=== PATIENT | female | born 1960 | race Caucasian/White ===

== ENCOUNTER 2018-07-19 14:58 | Inpatient (IN) | payer OTHER, MEDICAID ==
[~2018-07-19] VITALS: Ht 154.9 cm; Wt 64.4 kg
[2018-07-19] MEDS ORDERED: SODIUM CHLORIDE 0.9% 1000ML BAG (SEPSIS BOLUS) IV ONE (15:30)
[2018-07-19] MEDS ORDERED: CEFTRIAXONE 1 G PREMIX 50 ML IV ONE (15:30)
[2018-07-19 15:55] LABS: HEMATOCRIT. 33.7 % (36.0-48.0); HEMOGLOBIN. 11.7 g/dL (12.0-16.0); MEAN CORPUSCULAR HEMOGLOBIN 29.8 pg (28.0-32.0); MEAN CORPUSCULAR VOLUME 85.8 fL (81.0-99.0); PLATELET 216 x1000/uL (130-400); RED BLOOD CELL COUNT 3.92 mill/uL (4.2-5.4); RED CELL DISTRIBUTION WIDTH 14.4 % (11.6-14.6)
[2018-07-19 15:57] LABS: CHLORIDE 91 mEq/L (98-107); PROTHROMBIN TIME 10.3 sec (9.6-11.0)
[2018-07-19 16:09] LABS: CLARITY URINE CLEAR (CLEAR); COLOR URINE YELLOW (YELLOW); KETONES URINE TRACE (NEGATIVE); LEUKOCYTE ESTERASE URINE NEGATIVE (NEGATIVE); NITRITE URINE NEGATIVE (NEGATIVE); OCCULT BLOOD URINE TRACE (NEGATIVE); PH URINE 8.5 (4.5-8.0); PROTEIN URINE 1+ (NEGATIVE); SPECIFIC GRAVITY URINE 1.025 (1.005-1.030); UROBILINOGEN URINE 0.2 E.U./dL (0.2-1.0)
[2018-07-19 16:50] LABS: PLATELET ESTIMATE NORMAL
[2018-07-19] MEDS ORDERED: SODIUM CHLORIDE 0.9% 1,000 ML IV ONE (17:30)
[2018-07-19] MEDS ORDERED: POTASSIUM CHLORIDE 20MEQ TABLET SR PO ONE (18:15)
[2018-07-19] MEDS ORDERED: SODIUM CHL 0.45% + KCL 20MEQ/L 1,000 ML IV SCH (18:15)
[2018-07-19] MEDS ORDERED: ENOXAPARIN 40MG/0.4ML SYR SUBCUT SCH (18:15)
[2018-07-19] MEDS ORDERED: CLONIDINE 0.1MG TABLET PO PRN (18:15)
[2018-07-19] MEDS ORDERED: ONDANSETRON HCL 4MG/2ML INJ IV PRN (18:15)
[2018-07-19] MEDS ORDERED: GLIMEPIRIDE 2MG TABLET PO SCH (18:15)
[2018-07-19 20:34] LABS: HEMATOCRIT 33.4 % (36.0-48.0); HEMOGLOBIN 11.7 g/dL (12.0-16.0)
[2018-07-19 21:13] LABS: CLARITY URINE CLEAR (CLEAR); COLOR URINE YELLOW (YELLOW); KETONES URINE TRACE (NEGATIVE); LEUKOCYTE ESTERASE URINE NEGATIVE (NEGATIVE); NITRITE URINE NEGATIVE (NEGATIVE); OCCULT BLOOD URINE TRACE (NEGATIVE); PROTEIN URINE 1+ (NEGATIVE); UROBILINOGEN URINE 0.2 E.U./dL (0.2-1.0)
[2018-07-19 21:20] LABS: *AMPHETAMINES SCREEN URINE NEGATIVE (NEGATIVE); *BARBITURATES SCREEN URINE NEGATIVE (NEGATIVE); *BENZODIAZEPINES SCREEN URINE NEGATIVE (NEGATIVE)
[2018-07-19 21:21] LABS: *COCAINE SCREEN URINE NEGATIVE (NEGATIVE); CANNABINOID URINE SCREEN NEGATIVE (NEGATIVE); METHADONE URINE SCREEN NEGATIVE (NEGATIVE); OPIATES URINE SCREEN NEGATIVE (NEGATIVE); PHENCYCLIDINE URINE SCREEN NEGATIVE (NEGATIVE)
[2018-07-19 22:30] VITALS: BP 95/53
[2018-07-19] MEDS ORDERED: DEXTROSE 50% WATER 50ML SYRINGE IV PRN (22:45)
[2018-07-19] MEDS ORDERED: POTASSIUM CHLORIDE 20MEQ TABLET SR PO NR (22:45)
[2018-07-19 22:50] VITALS: BP 95/53
[2018-07-19] MEDS: BLOOD SUGAR DIAGNOSTIC STRIP TEST SCH (23:39)
[2018-07-19] MEDS: INSULIN LISPRO 100 UNITS/ML SUBCUT SCH (23:46)
[2018-07-20] VITALS (8 sets, daily range): BP systolic 83–121; BP diastolic 48–65
[2018-07-20] MEDS ORDERED: CLINDAMYCIN 600 MG in DEXTROSE 5% WATER 50 ML IV SCH ×2
[2018-07-20] MEDS: SODIUM CHL 0.45% + KCL 20MEQ/L 1,000 ML IV SCH ×3 (00:33→17:41)
[2018-07-20] MEDS: CLINDAMYCIN 600MG PREMIX 50 ML IV SCH ×4 (01:25→17:41)
[2018-07-20] MEDS: BLOOD SUGAR DIAGNOSTIC STRIP TEST SCH ×4 (06:20→21:00)
[2018-07-20 06:22] LABS: BASOPHILS % 0.4 % (0.0-2.0); EOSINOPHILS % 0.3 % (0.0-5.0); HEMATOCRIT. 30.2 % (36.0-48.0); HEMOGLOBIN. 10.4 g/dL (12.0-16.0); LYMPHOCYTES % 9.7 % (20.0-50.0); MEAN CORPUSCULAR HEMOGLOBIN 29.4 pg (28.0-32.0); MEAN CORPUSCULAR VOLUME 85.2 fL (81.0-99.0); MEAN PLATELET VOLUME 8.2 fl (7.4-10.4); NEUTROPHILS % 82.6 % (40.0-76.0); PLATELET 164 x1000/uL (130-400); RED BLOOD CELL COUNT 3.54 mill/uL (4.2-5.4); RED CELL DISTRIBUTION WIDTH 14.8 % (11.6-14.6)
[2018-07-20] MEDS: OMEPRAZOLE 20MG CAPSULE EXTENDED RELEASE PO SCH (06:24)
[2018-07-20] MEDS: INSULIN LISPRO 100 UNITS/ML SUBCUT SCH ×4 (06:28→22:25)
[2018-07-20] MEDS: ACETAMINOPHEN 325MG TABLET PO PRN ×2 (06:59→17:59)
[2018-07-20 07:24] LABS: CHLORIDE 104 mEq/L (98-107)
[2018-07-20] MEDS: GLIMEPIRIDE 2MG TABLET PO SCH ×2 (08:16→17:41)
[2018-07-20] MEDS: POTASSIUM CHLORIDE 20MEQ TABLET SR PO SCH (08:16)
[2018-07-20] MEDS: ENOXAPARIN 40MG/0.4ML SYR SUBCUT SCH (08:17)
[2018-07-20] MEDS: LINAGLIPTIN 5MG TABLET PO SCH (09:49)
[2018-07-21] VITALS: BP 92/52
[2018-07-21] MEDS: CLINDAMYCIN 600MG PREMIX 50 ML IV SCH ×4 (00:07→17:52)
[2018-07-21] MEDS: SODIUM CHL 0.45% + KCL 20MEQ/L 1,000 ML IV SCH ×4 (00:07→21:30)
[2018-07-21 04:00] VITALS: BP 95/56
[2018-07-21] MEDS: BLOOD SUGAR DIAGNOSTIC STRIP TEST SCH ×4 (06:46→21:30)
[2018-07-21] MEDS: GLIMEPIRIDE 2MG TABLET PO SCH ×2 (06:47→17:52)
[2018-07-21] MEDS: OMEPRAZOLE 20MG CAPSULE EXTENDED RELEASE PO SCH (06:47)
[2018-07-21] MEDS: INSULIN LISPRO 100 UNITS/ML SUBCUT SCH ×4 (06:49→21:00)
[2018-07-21 07:22] LABS: HEMATOCRIT. 29.4 % (36.0-48.0); MEAN CORPUSCULAR HEMOGLOBIN 29.4 pg (28.0-32.0); MEAN PLATELET VOLUME 9.1 fl (7.4-10.4); PLATELET 80 x1000/uL (130-400); RED BLOOD CELL COUNT 3.42 mill/uL (4.2-5.4); RED CELL DISTRIBUTION WIDTH 14.6 % (11.6-14.6)
[2018-07-21 07:54] LABS: CHLORIDE 107 mEq/L (98-107)
[2018-07-21 08:00] VITALS: BP 93/50
[2018-07-21] MEDS: ENOXAPARIN 40MG/0.4ML SYR SUBCUT SCH (08:30)
[2018-07-21] MEDS: LINAGLIPTIN 5MG TABLET PO SCH (08:30)
[2018-07-21] MEDS: POTASSIUM CHLORIDE 20MEQ TABLET SR PO SCH (08:30)
[2018-07-21 11:05] LABS: PLATELET ESTIMATE DECREASED
[2018-07-21 12:00] VITALS: BP 109/56
[2018-07-21] MEDS: LEVOFLOXACIN 750MG PREMIX 150 ML IV SCH (13:45)
[2018-07-21 16:00] VITALS: BP 115/63
[2018-07-21] MEDS: LACTOBACILLUS GG CAPSULE PO SCH (16:26)
[2018-07-21] MEDS: ACETAMINOPHEN 325MG TABLET PO PRN ×2 (19:01→21:30)
[2018-07-21 20:00] VITALS: BP 127/64
[2018-07-22] VITALS (7 sets, daily range): BP systolic 111–125; BP diastolic 66–79
[2018-07-22] MEDS: CLINDAMYCIN 600MG PREMIX 50 ML IV SCH ×3 (00:49→12:17)
[2018-07-22] MEDS: BLOOD SUGAR DIAGNOSTIC STRIP TEST SCH ×3 (06:04→16:45)
[2018-07-22] MEDS: INSULIN LISPRO 100 UNITS/ML SUBCUT SCH ×3 (06:20→17:15)
[2018-07-22] MEDS: GLIMEPIRIDE 2MG TABLET PO SCH (06:20)
[2018-07-22 06:34] LABS: BASOPHILS % 0.7 % (0.0-2.0); EOSINOPHILS % 1.4 % (0.0-5.0); HEMATOCRIT. 29.3 % (36.0-48.0); LYMPHOCYTES % 22.4 % (20.0-50.0); MEAN CORPUSCULAR VOLUME 84.6 fL (81.0-99.0); MEAN PLATELET VOLUME 8.8 fl (7.4-10.4); NEUTROPHILS % 66.5 % (40.0-76.0); PLATELET 72 x1000/uL (130-400); RED BLOOD CELL COUNT 3.46 mill/uL (4.2-5.4); RED CELL DISTRIBUTION WIDTH 14.7 % (11.6-14.6)
[2018-07-22] MEDS: ACETAMINOPHEN 325MG TABLET PO PRN (06:38)
[2018-07-22 07:04] LABS: CHLORIDE 105 mEq/L (98-107)
[2018-07-22] MEDS ORDERED: FAMOTIDINE 20MG TABLET PO SCH (09:00)
[2018-07-22] MEDS: ENOXAPARIN 40MG/0.4ML SYR SUBCUT SCH (09:00)
[2018-07-22] MEDS: LACTOBACILLUS GG CAPSULE PO SCH (09:03)
[2018-07-22] MEDS: SODIUM CHL 0.45% + KCL 20MEQ/L 1,000 ML IV SCH (09:03)
[2018-07-22] MEDS: LINAGLIPTIN 5MG TABLET PO SCH (09:03)
[2018-07-22] MEDS: POTASSIUM CHLORIDE 20MEQ TABLET SR PO SCH (09:04)
[2018-07-22] MEDS: LEVOFLOXACIN 750MG PREMIX 150 ML IV SCH (13:02)
[2018-07-23] MEDS ORDERED: CLINDAMYCIN 600 MG in DEXTROSE 5% WATER 50 ML IV SCH ×2
[2018-07-23 15:08] LABS: ANTI-DNA DOUBLE STRANDED QUANT 1 IU/mL (0-9); ANTI-NUCLEAR ANTIBODIES DIRECT Negative (Negative)
== END 2018-07-22 19:07 | disposition home or self-care (01) | DRG 420 ==
LOC: ER 14:58 → 5WST 17:44 → EDBEDREQ 17:47 → EDBEDREQSVC 17:47 → EDBEDREQTM 17:47 → ENRESERV 21:19 → EDBEDREQ 22:10
PROVIDERS: ADMIT Internal Medicine Geriatric Medicine; ATTEND Internal Medicine Geriatric Medicine
DX: E11.65 Type 2 diabetes mellitus with hyperglycemia (principal); D69.6 Thrombocytopenia, unspecified; R78.81 Bacteremia; E44.1 Mild protein-calorie malnutrition; G90.8 Other disorders of autonomic nervous system; E87.6 Hypokalemia; D64.9 Anemia, unspecified; Y92.89 Other specified places as the place of occurrence of the external cause; Z86.32 Personal history of gestational diabetes; Z88.0 Allergy status to penicillin; Z83.3 Family history of diabetes mellitus; Z91.14 Patient's other noncompliance with medication regimen
CPT/HCPCS: 36415; 71045; 80048; 80061; 80305; 82962; 83605; 84145; 84484; 85014; 85018; 85651; 86038; 86225; 87077; 87186; 87493; 93005; 93306; 96365; 99291; C1893; J0696; J1650; J1815; J1956; J3480; J3490; J7030; J7050; J7060